=== PATIENT | female | born 1970 | race Caucasian/White ===

== ENCOUNTER 2022-09-05 09:01 | Emergency (ER) | payer OTHER ==
[2022-09-05 09:14] VITALS: BP 160/63; PULSE 65; RESP 16; TEMP 98.6; BMI 30.2
[2022-09-05] MEDS ORDERED: LIDOCAINE 5% TOPICAL PATCH TP ONE (09:30)
[2022-09-05] MEDS ORDERED: LIDOCAINE 5% TOPICAL PATCH ONE (09:32)
[2022-09-05] MEDS ORDERED: LIDOCAINE PATCH REMOVAL MC SCH (22:00)
== END 2022-09-05 10:00 | disposition home or self-care (01) ==
LOC: FER 09:01
DX: M62.838 Other muscle spasm (principal)
CPT/HCPCS: 99283-25

== ENCOUNTER 2023-09-03 10:24 | Emergency (ER) | payer OTHER ==
[2023-09-03 10:53] VITALS: BP 154/60; PULSE 62; RESP 16; TEMP 97.9; BMI 29.2
[2023-09-03] MEDS ORDERED: FAMOTIDINE 20 MG/50 ML IVPB 20 MG in PREMIX 50 IVPB ONE (11:01)
[2023-09-03] MEDS ORDERED: MAG HYDROX/AL HYDROX/SIMETH -MYLANTA- ORAL SUSPENSION PO ONE (11:01)
[2023-09-03] MEDS ORDERED: MAG HYDROX/AL HYDROX/SIMETH 30 ML UNIT-DOSE CUP ONE (11:08)
[2023-09-03] MEDS ORDERED: FAMOTIDINE 20 MG/50 ML IVPB 20 MG/50 ML MG IVPB ONE (11:08)
[2023-09-03 11:40] LABS: HEMATOCRIT 39.6 % (32.4-45.2); MCH 30.6 pg (25.7-33.7); MCHC 32.9 g/dl (32.0-36.0); MEAN CELL VOLUME 92.9 fl (80-96); RBC 4.26 10^6/uL (3.60-5.2); RDW 13.6 % (11.6-15.6); WHITE BLOOD COUNT 8.1 10^3/uL (4.0-10.8)
[2023-09-03 12:53] LABS: ALBUMIN 4.3 g/dl (3.4-5.0); BILIRUBIN,TOTAL 0.4 mg/dl (0.2-1); CALCIUM 9.8 mg/dl (8.5-10.1); CREATININE 0.7 mg/dl (0.6-1.3); TOT PROT 7.2 g/dl (6.4-8.2)
== END 2023-09-03 14:22 | disposition home or self-care (01) ==
LOC: FER 10:24
PROC: 3E033GC Introduction of Other Therapeutic Substance into Peripheral Vein, Percutaneous Approach (ICD-10-PCS; principal; 2023-09-03)
DX: R10.13 Epigastric pain (principal)
CPT/HCPCS: 36415; 76705-TC; 80053; 81003; 81015; 83690; 85027; 99284-25

== ENCOUNTER 2024-02-18 15:52 | Emergency (ER) | payer OTHER ==
[2024-02-18 16:15] VITALS: BP 150/91; PULSE 75; RESP 20; TEMP 98.6; BMI 30.2
[2024-02-18] MEDS ORDERED: ACETAMINOPHEN INJECTION 100 ML IVPB ONE (17:13)
[2024-02-18] MEDS ORDERED: METOCLOPRAMIDE HCL INJECTION 10 MG/2 ML VIAL ONE (17:13)
[2024-02-18] MEDS: ACETAMINOPHEN 1000 MG/100 ML BAG IVPB ONE (17:23)
[2024-02-18] MEDS: LACTATED RINGERS SOLUTION 1000 ML INFUS.BAG IV ONE (17:23)
[2024-02-18] MEDS: METOCLOPRAMIDE HCL INJECTION 10 MG/2 ML VIAL IVPUSH ONE (17:24)
[2024-02-18] MEDS ORDERED: FAMOTIDINE 20 MG TABLET ONE (17:33)
[2024-02-18] MEDS: FAMOTIDINE 20 MG TABLET PO ONE (17:37)
[2024-02-18] MEDS ORDERED: KETOROLAC TROMETHAMINE 30 MG/1 ML VIAL ONE (18:28)
[2024-02-18] MEDS: KETOROLAC TROMETHAMINE 15 MG/ML VIAL IM ONE (18:33)
== END 2024-02-18 18:38 | disposition home or self-care (01) ==
LOC: FER 15:52
PROC: 3E030NZ Introduction of Analgesics, Hypnotics, Sedatives into Peripheral Vein, Open Approach (ICD-10-PCS; principal; 2024-02-18)
PROC: 3E030GC Introduction of Other Therapeutic Substance into Peripheral Vein, Open Approach (ICD-10-PCS; 2024-02-18)
PROC: 3E0233Z Introduction of Anti-inflammatory into Muscle, Percutaneous Approach (ICD-10-PCS; 2024-02-18)
DX: R51.9 Headache, unspecified (principal); Z20.822 Contact with and (suspected) exposure to COVID-19
CPT/HCPCS: 0241U-QW; 70450-TC; 99284-25; J0131